=== PATIENT | female | born 1935 | race Caucasian/White ===

== ENCOUNTER 2020-07-25 16:20 | Emergency (ER) | payer MEDICARE, OTHER ==
[~2020-07-25] VITALS: Ht 154.9 cm; Wt 46.3 kg
--- NOTE | 2020-07-25 17:15 | NUR ---
Patient came in to the er c/o tripped and fall at a local store no LOC, lac to right hand and bruise/swelling to nasal area. On room air, breathing evenly and unlabored. connected to the monitor and pulse ox. kept comfortable, will continue to monitor accordingly.
[2020-07-25] MEDS ORDERED: TDAP [DIPH/PERTUSSIS/TET] 0.5 ML VIAL IM ONE ×2 (17:24→17:30)
--- NOTE | 2020-07-25 17:45 | NUR ---
wheeled patient via gurney to ct
--- NOTE | 2020-07-25 17:51 | NUR ---
patient came back from ct
[2020-07-25 19:04] VITALS: BP 119/71
--- NOTE | 2020-07-25 19:05 | NUR ---
Patient discharged to home in stable condition. Written and verbal after care instructions given. Patient verbalizes understanding of instruction.
== END 2020-07-25 19:05 | disposition home or self-care (01) ==
LOC: ER 16:30
DX: S02.2XXA Fracture of nasal bones, initial encounter for closed fracture (principal); S61.411A Laceration without foreign body of right hand, initial encounter; G47.00 Insomnia, unspecified; F41.9 Anxiety disorder, unspecified; M19.90 Unspecified osteoarthritis, unspecified site; Z98.890 Other specified postprocedural states; Z88.1 Allergy status to other antibiotic agents; Z88.6 Allergy status to analgesic agent; Z88.8 Allergy status to other drugs, medicaments and biological substances; W01.0XXA Fall on same level from slipping, tripping and stumbling without subsequent striking against object, initial encounter; Y93.89 Activity, other specified; Y92.89 Other specified places as the place of occurrence of the external cause; Y99.8 Other external cause status
CPT/HCPCS: 70486-TC; 73130-TC; 90715

== ENCOUNTER 2020-09-25 06:41 | Emergency (ER) | payer MEDICARE, BC ==
[~2020-09-25] VITALS: Ht 154.9 cm; Wt 45.4 kg
--- NOTE | 2020-09-25 07:05 | NUR ---
bibselraimundo c/o laceration to posterior head. pt states " i was using the restroom without the lights on and hit the bathroom tub top" pt denies ko. pt drove herself to ER. pt denies use of bloodthinners or ko. pt aox4 rr even and unlabored. no sob noted. no nvd at this time. pt waiting for md arellano.
--- NOTE | 2020-09-25 07:13 | NUR ---
wound care provided.
--- NOTE | 2020-09-25 07:35 | NUR ---
REPORT GIVEN TO PAULINA STRICKLAND FOR CONTINUITY OF CARE. NO ACUTE DISTRESS NOTED.
--- NOTE | 2020-09-25 08:00 | NUR ---
pt to radiology for head ct scan via [facility].
--- NOTE | 2020-09-25 09:10 | NUR ---
Patient discharged to home in stable condition. Written and verbal after care instructions given. Patient verbalizes understanding of instruction.
[2020-09-25 09:12] VITALS: BP 144/60
== END 2020-09-25 09:14 | disposition home or self-care (01) ==
LOC: ER 06:44
DX: S00.01XA Abrasion of scalp, initial encounter (principal); S09.8XXA Other specified injuries of head, initial encounter; Z88.1 Allergy status to other antibiotic agents; Z88.6 Allergy status to analgesic agent; Z88.8 Allergy status to other drugs, medicaments and biological substances; Z60.2 Problems related to living alone; X58.XXXA Exposure to other specified factors, initial encounter; Y93.89 Activity, other specified; Y92.89 Other specified places as the place of occurrence of the external cause; Y99.8 Other external cause status
CPT/HCPCS: 70450-TC